=== PATIENT | male | born 1975 | race Caucasian/White ===

== ENCOUNTER 2017-01-13 13:17 | Emergency (ER) | payer MEDICARE, MEDICAID ==
[~2017-01-13 13:17] MED LIST: ABILIFY5 M1 PO; ABILIFY5 MG PO; ADVIL PM CAPLET1 TAB PO; ALEVE220 M1 PO; AMBIEN5 M1 PO; AMOXICILLIN875 MG PO; BENTYL20 MG PO; CATAFLAM50 MG PO; CLONAZEPAM1 MG PO; CYCLOBENZAPRINE10 M1 PO; DEPAKOTE ER250 M1 PO; DEPAKOTE250 M1 PO; ELAVIL150 MG; ELAVIL50 MG PO; ELAVIL75 MG PO; FLEXERIL10 MG PO; FLEXERIL5 MG PO; GABITRIL4 MG; GABITRIL4 MG PO; H PO; HYDROCODON-ACE1 EA16 PO; HYDROXYZINE HCL25 M1 PO; IBUPROFEN; KEPPRA1000 M1 PO; KEPPRA500 M1 PO; KEPPRA500 M3 PO; KLONOPIN1 M1 PO; KLONOPIN1 MG PO; LEXAPRO20 M1 PO; LEXAPRO20 M2; LEXAPRO20 M2 PO; LEXAPRO20 MG; LEXAPRO20 MG PO; LORTAB 5-325 M1 EAC1 PO; LORTAB 5/500 TA1 TAB PO; METHOCARBAMOL500 MG PO; METHOCARBAMOL750 MG PO; METOPROLOL SUCC25 M1 PO; MIRALAX255 GM PO; NAPROSYN500 M1 PO; NAPROXEN500 M1 PO; NORCO 10/325 TA1 TAB PO; NORCO 5-325 TA1 EACH PO; NORCO 5/325 TAB1 TAB PO; NORCO 5/3251 TAB PO; NORCO 7.5-3251 EACH PO; NORCO 7.5/3251 TAB PO; PEN-VEE K500 MG PO; PROMETHAZINE HC25 M3 PO; PROMETHAZINE12.5 MG PO; PROSOM1 MG PO; PROSOM2 MG PO; RESTORIL15 MG PO; RESTORIL30 M1 PO; RESTORIL30 MG PO; ROBAXIN750 MG/TAB PO; SSD25 GM TP; TOPROL XL25 MG PO; TRAMADOL HCL50 M2 PO; TRILEPTAL PO; TRILEPTAL300 MG PO; ULTRAM50 MG PO; VICODIN ES 7.51 EACH PO; ZOFRAN ODT4 MG PO; ZOFRAN4 MG PO
[2017-01-13] MEDS ORDERED: NORCO 5-325 TA1 EACH PO ×2 (14:49→15:19)
[2017-01-13] MEDS ORDERED: FOCALIN10 M1 PO (14:53)
[2017-01-13] MEDS ORDERED: OMEPRAZOLE20 M3 PO (14:54)
[2017-05-20] MEDS ORDERED: LEVAQUIN500 M1 PO (09:26)
[2017-05-20] MEDS ORDERED: HYDROCODON-ACE1 EA16 PO (09:37)
== END 2017-01-13 15:39 ==
LOC: EDMED 13:17
DX: R56.9 Unspecified convulsions (principal); S00.93XA Contusion of unspecified part of head, initial encounter; S00.83XA Contusion of other part of head, initial encounter; S20.219A Contusion of unspecified front wall of thorax, initial encounter; X58.XXXA Exposure to other specified factors, initial encounter; R41.0 Disorientation, unspecified
CPT/HCPCS: J7030

== ENCOUNTER 2017-02-15 08:24 | Emergency (ER) | payer MEDICARE, MEDICAID ==
[~2017-02-15 08:24] MED LIST changes: +FOCALIN10 M1 PO; +OMEPRAZOLE20 M3 PO
[2017-02-15] MEDS ORDERED: NORCO 5-325 TA1 EACH PO (10:01)
[2017-05-20] MEDS ORDERED: LEVAQUIN500 M1 PO (09:26)
[2017-05-20] MEDS ORDERED: HYDROCODON-ACE1 EA16 PO (09:37)
== END 2017-02-15 10:15 ==
LOC: EDMED 08:24
DX: S30.0XXA Contusion of lower back and pelvis, initial encounter (principal); S70.12XA Contusion of left thigh, initial encounter; F31.9 Bipolar disorder, unspecified; G40.909 Epilepsy, unspecified, not intractable, without status epilepticus; F41.9 Anxiety disorder, unspecified; Z90.49 Acquired absence of other specified parts of digestive tract; Z87.442 Personal history of urinary calculi; Z79.899 Other long term (current) drug therapy; W01.0XXA Fall on same level from slipping, tripping and stumbling without subsequent striking against object, initial encounter; Y92.012 Bathroom of single-family (private) house as the place of occurrence of the external cause

== ENCOUNTER 2017-02-21 07:59 | Emergency (ER) | payer MEDICARE, MEDICAID ==
[2017-02-21 08:31] LABS: BASO % 0.6 % (0-2); EOS % 4.1 % (0-7); EOSINOPHIL ABSOLUTE COUNT 0.3 tho/cmm (0.0-0.7); HCT-HEMATOCRIT 41.4 % (36.0-53.5); HGB-HEMOGLOBIN 13.9 gm/dl (13.5-17.0); IMMATURE GRANULOCYTES ABSOLUTE 0.02 tho/cmm (0-0.03); IMMATURE GRANULOCYTES PERCENT 0.3 % (0-0.3); LYMPH % 21.7 % (20-45); LYMPH ABSOLUTE COUNT 1.4 tho/cmm (0.8-4.5); MCH (MEAN CORPUSCULAR HGB) 29.4 pg (28.0-32.0); MCHC MEAN CORPUSCULAR HGB CONC 33.6 % (32.0-36.0); MCV (MEAN CELL VOLUME) 87.7 fl (82.0-96.0); MEAN PLATELET VOLUME 8.6 cmc (9.4-12.4); MONO % 11.5 % (0-12); MONOCYTE ABSOLUTE COUNT 0.8 tho/cmm (0.0-1.2); NEUTROPHILS % 61.8 % (40-80); PLATELET COUNT 257 tho/cmm (150-450); RED BLOOD COUNT 4.72 mil/cmm (4.40-5.70); RED CELL DISTRIBUTION WIDTH 13.5 % (12.4-16.4); WHITE BLOOD COUNT 6.5 tho/cmm (4.0-10.0)
[2017-02-21 08:46] LABS: ANION GAP 14 mmol/L (0-20); BLOOD UREA NITROGEN 11 mg/dl (6-24); CALCIUM 8.9 mg/dl (8.5-10.5); CARBON DIOXIDE-VENOUS 27 mmol/L (22-32); CHLORIDE 109 mmol/l (96-110); CREATININE 0.96 mg/dl (0.60-1.30); GLUCOSE 88 mg/dL (70-110); POTASSIUM 3.8 mmol/L (3.7-5.1); SODIUM 146 mmol/L (135-145); eGFR VALUE FOR BLACK >90 mL/Min
[2017-02-21 10:46] LABS: URINE BILIRUBIN NEGATIVE (NEG); URINE BLOOD LARGE (NEG); URINE GLUCOSE (UA) NEGATIVE (NEG); URINE KETONE NEGATIVE (NEG); URINE LEUKOCYTE ESTERASE NEGATIVE (NEG); URINE NITRITE NEGATIVE (NEG); URINE PROTEIN NEGATIVE (NEG)
[2017-02-21 10:52] LABS: URINE APPEARANCE HAZY; URINE COLOR PALE YELLOW
[2017-02-21 10:53] LABS: URINE EPITHELIAL CELLS 0 /[HPF] (0-10); URINE RBC 80-100 /[HPF] (0-5); URINE WBC RARE /[HPF] (0-5)
[2017-05-20] MEDS ORDERED: LEVAQUIN500 M1 PO (09:26)
[2017-05-20] MEDS ORDERED: HYDROCODON-ACE1 EA16 PO (09:37)
== END 2017-02-21 11:20 ==
LOC: EDMED 07:59
PROVIDERS: Emergency Medicine
DX: R10.9 Unspecified abdominal pain (principal); R31.9 Hematuria, unspecified; F32.9 Major depressive disorder, single episode, unspecified; Z90.49 Acquired absence of other specified parts of digestive tract; Z79.899 Other long term (current) drug therapy
CPT/HCPCS: J1170; J2405; J7030